=== PATIENT | female | born 1965 | race Caucasian/White ===

== ENCOUNTER 2022-12-04 12:06 | Outpatient (CLI) | payer OTHER | END 2022-12-04 12:07 | disposition home or self-care (01) | LOC: SCSRAD 12:06 | PROVIDERS: ATTEND Physician Assistant | DX: M25.552 Pain in left hip (principal); M51.9 Unspecified thoracic, thoracolumbar and lumbosacral intervertebral disc disorder; M47.816 Spondylosis without myelopathy or radiculopathy, lumbar region | CPT/HCPCS: 72100 ==

== ENCOUNTER 2023-01-05 13:50 | Outpatient (CLI) | payer OTHER | END 2023-01-05 13:51 | disposition home or self-care (01) | LOC: MRI 13:50 | PROVIDERS: ATTEND Physician Assistant | DX: M51.16 Intervertebral disc disorders with radiculopathy, lumbar region (principal); M51.37 Other intervertebral disc degeneration, lumbosacral region; M51.35 Other intervertebral disc degeneration, thoracolumbar region | CPT/HCPCS: 72148 ==

== ENCOUNTER 2024-11-03 13:22 | Outpatient (CLI) | payer OTHER ==
[2024-11-03] MEDS ORDERED: Magnevist 469MG/ML 20 ML VIAL ONE (15:03)
== END 2024-11-03 13:23 | disposition home or self-care (01) ==
LOC: BICMRI 13:22
PROVIDERS: ATTEND Physician Assistant
DX: I63.89 Other cerebral infarction (principal); R41.3 Other amnesia; F68.8 Other specified disorders of adult personality and behavior; R90.82 White matter disease, unspecified; I67.89 Other cerebrovascular disease
CPT/HCPCS: 36415; 70553; 82565